=== PATIENT | female | born 1985 | race Caucasian/White ===

== ENCOUNTER 2018-06-20 22:50 | Inpatient (IN) | payer OTHER ==
[2018-06-20] MEDS ORDERED: LACTATED RINGER'S 1,000 ML IV (23:32)
[2018-06-20] MEDS: LACTATED RINGER'S 1,000 ML IV (23:50)
[2018-06-21] MEDS ORDERED: LIDOCAINE 1% (MPF) 30 ML INJ INJ
[2018-06-21] MEDS ORDERED: AMPICILLIN 2 GM/NS (PMX) 100 ML IV
[2018-06-21] MEDS ORDERED: BUTORPHANOL 2 MG INJ IV
[2018-06-21] MEDS ORDERED: BUTORPHANOL 1 MG INJ IV
[2018-06-21 00:04] LABS: ADD MAN DIFF? NO
[2018-06-21 00:27] LABS: WHITE BLOOD COUNT 10.8 10^3/ul (4.8-10.8)
[2018-06-21 00:27] LABS: BASOPHILS % 0.4 % (0.0-2.0); EOSINOPHILS # 1.4 10^3/ul (0.0-0.5); EOSINOPHILS % 12.9 % (0.0-7.0); HEMATOCRIT 37.4 % (37.0-47.0); HEMOGLOBIN 12.4 g/dl (12.0-16.0); LYMPHOCYTES # 2.8 10^3/ul (0.8-2.9); LYMPHOCYTES % 26.1 % (15.0-51.0); MEAN CORPUSCULAR HEMOGLOBIN 27.3 pg (29.0-33.0); MEAN CORPUSCULAR HGB CONC 33.2 g/dl (32.0-37.0); MEAN CORPUSCULAR VOLUME 82.2 fl (82.0-101.0); MEAN PLATELET VOLUME 12.3 fl (7.4-10.4); MONOCYTE # 0.8 10^3/ul (0.3-0.9); MONOCYTES % 7.2 % (0.0-11.0); NEUTROPHIL # 5.7 10^3/ul (1.6-7.5); NEUTROPHILS % 52.9 % (39.0-77.0); PLATELET COUNT 230 10^3/UL (140-415); RED BLOOD COUNT 4.55 10^6/ul (4.20-5.40); RED CELL DISTRIBUTION WIDTH 15.3 % (11.5-14.5)
[2018-06-21 00:30] LABS: INR 0.86; PROTIME 11.8 Sec (11.9-14.9); PT RATIO 0.9
[2018-06-21 00:31] LABS: PARTIAL THROMBOPLASTIN TIME 28.1 Sec (23.0-35.0)
[2018-06-21 00:40] LABS: ALANINE AMINOTRANSFERASE 11 IU/L (13-69); ALBUMIN 3.7 g/dl (3.3-4.9); ALBUMIN/GLOBULIN RATIO 0.97; ALKALINE PHOSPHATASE 184 IU/L (42-121); ANION GAP 9 (5-13); ASPARTATE AMINO TRANSFERASE 20 IU/L (15-46); BLOOD UREA NITROGEN 10 mg/dl (7-20); CALCIUM 10.3 mg/dl (8.4-10.2); CARBON DIOXIDE 20 mmol/L (21-31); CHLORIDE 107 mmol/L (97-110); CREATININE 0.56 mg/dl (0.44-1.00); Estimated GFR > 60 mL/min (>60); GLUCOSE 121 mg/dl (70-220); POTASSIUM 4.1 mmol/L (3.5-5.1); SODIUM 136 mmol/L (135-144); TOTAL PROTEIN 7.5 g/dl (6.1-8.1); URIC ACID 5.4 mg/dl (3.1-7.9)
[2018-06-21] MEDS: LACTATED RINGER'S 1,000 ML IV ×3 (00:44→18:46)
[2018-06-21 01:11] LABS: HEPATITIS B SURFACE ANTIGEN NEGATIVE (NEGATIVE)
[2018-06-21] MEDS: MISOPROSTOL 50 MCG CAPSULE PO (02:10)
[2018-06-21] MEDS ORDERED: AMPICILLIN 1 GM/NS (PMX) 50 ML IV (04:00)
[2018-06-21] MEDS: OXYTOCIN 30 UNITS/LR 500 ML IV ×2 (13:03→13:24)
[2018-06-21] MEDS: IBUPROFEN 600 MG TAB PO ×2 (14:18→20:29)
[2018-06-21] MEDS: MAGNESIUM SULFATE 4 GM/100 ML 100 ML IVPB (15:27)
[2018-06-21] MEDS: MAGNESIUM SULFATE 20 GM/500 ML 500 ML IV (15:52)
[2018-06-21 16:21] LABS: RAPID PLASMA REAGIN NONREACTIVE (NR)
[2018-06-21] MEDS ORDERED: METHYLERGONOVINE 0.2 MG INJ IM ×2 (17:00)
[2018-06-21] MEDS ORDERED: MISOPROSTOL 200 MCG TAB PR ×2 (17:00)
[2018-06-21] MEDS ORDERED: OXYCODONE/ASPIRIN (4.88/325) TAB PO (17:00)
[2018-06-21] MEDS ORDERED: WITCH HAZEL/GLYCERIN PAD PR (17:00)
[2018-06-21] MEDS ORDERED: CARBOPROST 250 MCG INJ IM ×2 (17:00)
[2018-06-21] MEDS ORDERED: BENZOCAINE 20% 56 ML SPRAY TOP (17:00)
[2018-06-21] MEDS ORDERED: OXYTOCIN 30 UNITS/LR 500 ML IV ×2 (17:00)
[2018-06-21] MEDS ORDERED: ZOLPIDEM 5 MG TAB PO (17:00)
[2018-06-21] MEDS: OXYCODONE/ASPIRIN (4.88/325) TAB PO (17:18)
[2018-06-21] MEDS: LABETALOL 100 MG TAB PO (18:00)
[2018-06-21] MEDS: MINERAL OIL LIGHT 10 ML VIAL TOP (20:29)
[2018-06-22] MEDS: SENNA/DOCUSATE NA (8.6MG/50MG) TAB PO ×3 (00:41→21:13)
[2018-06-22] MEDS: IBUPROFEN 600 MG TAB PO ×4 (00:41→18:00)
[2018-06-22] MEDS: MAGNESIUM SULFATE 20 GM/500 ML 500 ML IV ×3 (01:42→21:30)
[2018-06-22 01:50] LABS: MAGNESIUM 5.8 mg/dl (1.7-2.5)
[2018-06-22] MEDS: LABETALOL 100 MG TAB PO ×2 (06:28→18:17)
[2018-06-22 06:49] LABS: ADD MAN DIFF? NO
[2018-06-22 06:51] LABS: BASOPHIL # 0.1 10^3/ul (0.0-0.1); BASOPHILS % 0.5 % (0.0-2.0); EOSINOPHILS # 0.6 10^3/ul (0.0-0.5); EOSINOPHILS % 3.6 % (0.0-7.0); HEMATOCRIT 36.1 % (37.0-47.0); HEMOGLOBIN 11.8 g/dl (12.0-16.0); LYMPHOCYTES # 3.4 10^3/ul (0.8-2.9); LYMPHOCYTES % 19.1 % (15.0-51.0); MEAN CORPUSCULAR HEMOGLOBIN 27.2 pg (29.0-33.0); MEAN CORPUSCULAR HGB CONC 32.7 g/dl (32.0-37.0); MEAN CORPUSCULAR VOLUME 83.2 fl (82.0-101.0); MEAN PLATELET VOLUME 11.8 fl (7.4-10.4); MONOCYTES % 5.8 % (0.0-11.0); NEUTROPHIL # 12.4 10^3/ul (1.6-7.5); NEUTROPHILS % 70.4 % (39.0-77.0); PLATELET COUNT 226 10^3/UL (140-415); RED BLOOD COUNT 4.34 10^6/ul (4.20-5.40); RED CELL DISTRIBUTION WIDTH 15.9 % (11.5-14.5)
[2018-06-22 06:51] LABS: WHITE BLOOD COUNT 17.5 10^3/ul (4.8-10.8)
[2018-06-22 07:16] LABS: MAGNESIUM 6.6 mg/dl (1.7-2.5)
[2018-06-22] MEDS: LACTATED RINGER'S 1,000 ML IV (08:51)
[2018-06-22 12:10] LABS: MAGNESIUM 6.3 mg/dl (1.7-2.5)
[2018-06-22] MEDS: LANOLIN HPA 1 PKT TOP (21:13)
[2018-06-23] MEDS: LABETALOL 100 MG TAB PO ×2 (06:04→18:14)
[2018-06-23] MEDS: IBUPROFEN 600 MG TAB PO ×4 (06:04→17:56)
[2018-06-23] MEDS: MAGNESIUM SULFATE 20 GM/500 ML 500 ML IV (07:30)
[2018-06-23] MEDS: INFLUENZA VIRUS VACCINE 0.5 ML (DISPENSING) IM* (09:17)
[2018-06-23 10:30] LABS: WHITE BLOOD COUNT 12.9 10^3/ul (4.8-10.8)
[2018-06-23] MEDS: LACTATED RINGER'S 1,000 ML IV (10:30)
[2018-06-23] MEDS: SENNA/DOCUSATE NA (8.6MG/50MG) TAB PO (10:49)
[2018-06-23] MEDS: DIPHTH/TET/ACEL PERTUSS (ADULT) 0.5 ML VIAL IM* (10:51)
== END 2018-06-23 18:28 | disposition home or self-care (01) | DRG 807 ==
LOC: OBT 22:50 → L-D 22:50 → PP1 06-21 21:54
PROC: 10E0XZZ Delivery of Products of Conception, External Approach (ICD-10-PCS; principal; 2018-06-21)
DX: O42.02 Full-term premature rupture of membranes, onset of labor within 24 hours of rupture (principal); Z37.0 Single live birth; O69.1XX0 Labor and delivery complicated by cord around neck, with compression, not applicable or unspecified; Z3A.38 38 weeks gestation of pregnancy; Z23 Encounter for immunization
CPT/HCPCS: 76815; 80053; 83735; 84560; 85025; 85048; 85610; 85730; 86592; 86850; 86900; 86901; 87340; 90686; 90715; 99464